=== PATIENT | male | born 1975 | race Two or more races ===

== ENCOUNTER 2024-07-18 22:18 | Emergency (ER) | payer MEDICAID ==
[~2024-07-18] VITALS: Ht 167.6 cm; Wt 172.0 kg
[2024-07-18 22:55] VITALS: BP 122/76; PULSE 85; RESP 18; TEMP 98.5; O2SAT 98
[2024-07-19] MEDS ORDERED: AUG875T PO (01:27)
[2024-07-19] MEDS: SILVER SULFADIAZINE 1 % TOPICAL CREAM 50GM TOP ONE (02:25)
== END 2024-07-19 02:44 | disposition home or self-care (01) ==
LOC: ER 22:18
DX: T25.522A Corrosion of first degree of left foot, initial encounter (principal); T25.521A Corrosion of first degree of right foot, initial encounter; T32.0 Corrosions involving less than 10% of body surface; I10 Essential (primary) hypertension; E11.9 Type 2 diabetes mellitus without complications; E78.5 Hyperlipidemia, unspecified; Y93.89 Activity, other specified; Y92.89 Other specified places as the place of occurrence of the external cause; Y99.8 Other external cause status
CPT/HCPCS: 16000